=== PATIENT | female | born 1970 | race Caucasian/White ===

== ENCOUNTER → 2017-01-01 | Outpatient (CLI) | payer OTHER | END | disposition home or self-care (01) | LOC: C.PAPS 13:51 | PROVIDERS: ATTEND Obstetrics & Gynecology | DX: Z12.4 Encounter for screening for malignant neoplasm of cervix (principal) ==

== ENCOUNTER 2020-04-04 09:38 | Observation (INO) ==
--- NOTE | 2020-03-31 09:00 | Anesthesiology Consultation ---
Date of Service March 31, 2020 Assessment & Plan (1) Encounter for pre-operative examination: Chart Review Chart Review: Acceptable Risk for Surgery (pending preop Covid testing results from 03/30) and Patient NOT seen in Pre Admission Testing - Check test AM DOS. Will leave to anesthesia discretion if EKG needed DOS. Per nursing assessment 03/25/20, pt resides in [facility]. Travels to [facility]. 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 No known Covid positive contacts or Covid related symptoms for patient personally. Pt does work in [facility] [employer]- gets tested weekly- has always tested negative. Pt denies any patients/employees with Covid at facility and never had in the past. Pt scheduled for preop Covid testing 03/30/20= results pending. Patient will be working from time of test until surgery but wears PPE as required. Pt may proceed as scheduled pending Covid results are negative. Will leave to anesthesia discretion if rapid Covid test needed DOS. History Surgery Operation Date: 04/04/20 09:50 Proposed Procedures p Robotic Total Laparoscopic Hysterectomy - Betty Lara MD, FACOG Height/Weight Height: 5 ft 7.5 in Weight: 91.172 kg Allergies Allergy/AdvReac Type Severity Reaction Status Date / Time codeine Allergy Unknown HEART RACES Verified 03/25/20 11:49 latex Allergy Unknown RASH Verified 03/25/20 11:49 Medications Home Medications Medication Instructions Recorded Confirmed Last Taken meloxicam 15 mg tablet 15 mg PO PM 03/08/20 03/25/20 Unknown acetaminophen [Acetaminophen Extra 500 mg PO BID 03/25/20 03/25/20 Unknown Strength] calcium carbonate [Calcium Antacid] 650 mg PO TID 03/25/20 03/25/20 Unknown triamcinolone acetonide 1 applic TOPICAL DAILY PRN 03/25/20 03/25/20 Unknown Past Medical History Medical History Deviated septum GERD (gastroesophageal reflux disease) Palpitations OCCASIONAL WHEN LAYING DOWN ON RIGHT SIDE Past Family History Family History Mother Coronary heart disease Lung cancer Sister Cervical cancer Past Surgical History Surgical History H/O abdominoplasty H/O tubal ligation Hx of cataract surgery BILAT Hx of cryosurgery, cervix, complicating Hx of oral surgery WISDOM TEETH Previous section S/P endometrial ablation Social History Smoking Status: Never smoker Do You Dip or Chew Tobacco: No Hx Alcohol Use: No Hx Substance Use: No substance use type: does not use Testing Laboratory Results Laboratory Tests 03/30/20 03/30/20 11:04 11:04 WBC 8.86 Hgb 14.6 Hct 42.4 Plt Count 236 Sodium 139 Potassium 3.7 Chloride 104 Carbon Dioxide 28 BUN 15 Creatinine 0.85 Glucose 100 H
[~2020-04-04 09:38] MED LIST: LACTATED RINGER'S 1,000 ML IV SCH; LR 15ML/HR IV SCH
[2020-04-04] MEDS ORDERED: DEXAMETHASONE SOD INJ 4 MG/ML VIAL ONE (11:18)
[2020-04-04] MEDS ORDERED: ONDANSETRON INJ 2 MG/ML 2 ML VIAL ONE (11:18)
[2020-04-04] MEDS ORDERED: fentaNYL citrate 100 MCG/2 ML VIAL ONE ×2 (11:18→11:19)
[2020-04-04] MEDS ORDERED: NEOSTIGMINE METHYLSULFATE 5 MG/5 ML SYR ONE (11:18)
[2020-04-04] MEDS ORDERED: ROCURONIUM BROMIDE 10 MG/ML 5 ML VIAL IV ONE (11:18)
[2020-04-04] MEDS ORDERED: LIDOCAINE HCL 2% 2 ML VIAL/AMP(20MG/ML) INFIL ONE (11:18)
[2020-04-04] MEDS ORDERED: PROPOFOL IV EMULSION 10 MG/ML 20 ML VIAL IV ONE (11:18)
[2020-04-04] MEDS ORDERED: GLYCOPYRROLATE 0.2 MG/ML VIAL ONE (11:18)
[2020-04-04] MEDS ORDERED: MIDAZOLAM HCL 1 MG/ML 2ML VIAL ONE (11:19)
[2020-04-04] MEDS ORDERED: fentaNYL citrate 100 MCG/2 ML VIAL IV PRN (11:36)
[2020-04-04] MEDS ORDERED: ATROPINE SULFATE 0.1 MG/ML 10ML SYR IV PRN (11:36)
[2020-04-04] MEDS ORDERED: ePHEDrine sulfate 50 MG/ML AMP IV PRN (11:36)
[2020-04-04] MEDS ORDERED: HYDROmorphone INJ 2 MG/ML SYR/VIAL IV PRN (11:36)
[2020-04-04] MEDS ORDERED: ONDANSETRON INJ 2 MG/ML 2 ML VIAL IV PRN ×2 (11:36→16:07)
[2020-04-04] MEDS ORDERED: SCOPOLAMINE 1.5 MG TDSY TD ONE ×2 (11:36→11:44)
--- NOTE | 2020-04-04 11:42 | History & Physical Bridge Note ---
Date of Service April 04, 2020 History & Physical Bridge Note I have examined the patient, reviewed the History & Physical and in the interval since the performance of the History & Physical I have noted the following changes of clinical significance: no changes noted
[2020-04-04] MEDS ORDERED: BUPIVACAINE 0.5 % 5 MG/1 ML MPF 30ML VIAL ONE (11:48)
[2020-04-04] MEDS: CEFAZOLIN 2000MG 2,000 MG/15 ML SYR IV SCH ×2 (12:22→12:45)
[2020-04-04] MEDS ORDERED: TISSEEL FIBRIN SEALANT 4ML TOP ONE (13:15)
[2020-04-04] MEDS ORDERED: HYDROmorphone INJ 2 MG/ML SYR/VIAL ONE (14:14)
--- NOTE | 2020-04-04 14:34 | Operative Report ---
PG Post Operative Report Pre & Post Diagnosis Operation Date: 04/04/20 11:20 Pre-Op Diagnosis: Pelvic Pain Post-Op Diagnosis: Pelvic Pain I identified the patient and participated in the time-out.: Yes Procedure Operation Date: 04/04/20 11:20 Actual Procedures p Robotic Total Laparoscopic Hysterectomy, Bilateral Salpingectomy, Cystoscopy - Betty Lara MD, FACOG Surgeon Betty Lara MD, FACOG Senior Analyst . Estimated Blood Loss 20 Findings Consistent with Post-Op Diagnosis Specimens Uterus fallopian tubes cervix Description of Procedure Patient was given a general anesthetic, prepped and draped in dorsal lithotomy position in yellow fin van stirrups. Care was taken to position the legs and arms properly with no excess pressure on any area. Pre-operative antibiotics were given and SCDs applied earlier. Joshua catheter was inserted into her bladder, V-Care manipluator was placed in the uterus and sutured in place. Gloves were changed and then a supra-umbilical incision was made with scalpel, using Kristen technique, we dissected through the subcutaneous fat, fascia, split the rectus muscles and then entered the peritoneal cavity.. Blunt tip Kristen Trochar then inserted and balloon inflated to stabilize the port. CO2 gas was then used to insufflate the peritoneal cavity. Findings. Moderate adhesions at the bladder flap but nothing remarkable uterus adnexa within normal limits Deep tendelenberg position was obtained. 2 robotic ports were then placed, one on the left, one on the right side under direct visualization. 11mm bladeless accessory port placed in left upper quadrant under direct visualization. Robot docked. Arm #1 Monopolar zion, arm #2 Bipolar [place] grasper. Fallopian tubes were identified and removed with the monoplar zion and removed thru the accessory port. Ureter was identified on each side and followed a normal course. Distal to the left ovary, the blood supply was coagulated with the bipolar [place] and then cut with Zion. We were well away from the ureter. Round ligament was coagulated and then cut. Uterine vessels were then skeletonized, bladder flap was sharply dissected away with zion. Uterine vessels were then coagulated close to the cervix staying away from the left ureter. Vessels then cut. The exact same process was repeated on the right side taking note of the location of the right ureter at all times. Colpotomy was then performed with the monopolar zion, once completed, the specimen was removed through the vagina. A sponge in a glove was then placed in the vagina to maintain pneumoperitoneum. Instrument exchange then occurred. Arm #1 became the STEPH needle delivery driver/customer service, Arm # 2 became the Cobra Grasper. 12 inch 2-0 V-Lock 90 day suture was placed through the accessory port. Cuff was closed from left to right, then back taking at least 1cm full thickness bites of vaginal mucosa. Suture was cut so there was no tail, needle removed through the accessory port. Sponge removed from the vagina and seal air tight. Generous irrigation and suction, hemostasis excellent, Tisseal applied to pedicles. Cystoscopy performed and no injury to the bladder, no sutures noted, good strong jets of blue colored dye were noted from both right and left ureter openings. Cystoscope removed and a new josuha catheter placed. Robot undocked, instruments, ports removed. gas allowed to escape. Incisions injected with Marcaine, fascia closed in the umbilical and a deep stitch into the accessory port with 0-Vicryl. 4-0 subcuticular skin closures on all incisions, dermabond apllied. Sponge and instrument counts correct. I attest to the content of the Intraoperative Record and any orders documented therein. Any exceptions are noted below.
--- NOTE | 2020-04-04 15:47 | Anesthesiology Progress Note ---
Date of Service April 04, 2020 Anesthesia Post Procedure Vital Signs Vital Signs: Temp Pulse Pulse Resp BP Pulse Ox 04/04/20 15:40 36.4 C L 66 14 130/69 95 04/04/20 15:30 36.4 C L 68 15 124/69 95 04/04/20 15:20 76 15 121/73 95 04/04/20 15:10 79 16 137/68 100 04/04/20 15:00 80 16 128/75 100 04/04/20 14:50 36.1 C L 90 13 131/79 98 04/04/20 10:23 36.7 C 69 20 142/87 H 99 Pain Intensity Abdomen: Pain Intensity: 2 Transfer of Care Handoff Completed per policy Notes Mental Status: alert / awake / arousable and participated in evaluation Patient Amnestic to Procedure: Yes Nausea / Vomiting: adequately controlled Pain: adequately controlled Airway Patency, RR, SpO2: stable & adequate BP & HR: stable & adequate Hydration State: stable & adequate Anesthetic Complications: no major complications apparent and Pt Satisfied with anesthetic care
[2020-04-04] MEDS ORDERED: CHECK SCOPOLAMINE PATCH PLACEMENT SCH (16:00)
[2020-04-04] MEDS ORDERED: bisacodyL 10 MG SUPP PR PRN (16:07)
[2020-04-04] MEDS ORDERED: OXYCODONE/ACETAMINOPHEN 5mg/325mg TAB PO PRN ×2 (16:07)
[2020-04-04] MEDS ORDERED: IBUPROFEN 600 MG TAB PO PRN (16:07)
[2020-04-04] MEDS ORDERED: MAGNESIUM HYDROXIDE SUSP 30 ML UDC PO PRN (16:07)
[2020-04-04] MEDS ORDERED: KETOROLAC 30 MG/ML VIAL IV PRN (16:07)
[2020-04-04] MEDS ORDERED: MEPERIDINE HCL 50 MG/ML CARP IV PRN (16:07)
[2020-04-04] MEDS ORDERED: PROMETHAZINE HCL 25 MG in SODIUM CHLORIDE 0.9% 50 ML IV PRN (16:07)
[2020-04-04] MEDS ORDERED: LACTATED RINGER'S 1,000 ML IV SCH (16:07)
[2020-04-04] MEDS ORDERED: SIMETHICONE 80 MG CHEW PO PRN (16:07)
[2020-04-04] MEDS ORDERED: PROMETHAZINE HCL 12.5 MG in SODIUM CHLORIDE 0.9% 50 ML IV PRN (16:07)
[2020-04-04] MEDS ORDERED: ZOLPIDEM TARTRATE 5 MG TAB PO PRN (16:07)
[2020-04-04] MEDS ORDERED: DOCUSATE SODIUM 100 MG CAP PO SCH (21:00)
--- NOTE | 2020-04-05 13:51 | Discharge Summary ---
Date of Service April 05, 2020 Discharge Data Procedures Performed Operation Date: 04/04/20 11:20 Actual Procedures p Robotic Total Laparoscopic Hysterectomy, Bilateral Salpingectomy, - Betty Lara MD, MING s Cystoscopy - Betty Lara MD, SHEILAOG Hospital Course (1) Pelvic pain: Patient had a laparoscopic hysterectomy recovered quickly and was sent home a few hours after surgery at that time she was ambulating well tolerating an oral diet minimal bleeding and pain was well-controlled discharge instructions were reviewed patient talkpatient had a laparoscopic hysterectomy recovered quickly and was sent home a few hours after surgery at that time she was ambulating well tolerating an oral diet minimal bleeding and pain was well- controlled discharge instructions were reviewed patient talk to contact the office with any concerns to contact the office with any concerns Coding Level of Care Code None Diagnoses Pelvic pain R10.2
== END 2020-04-04 21:40 | disposition home or self-care (01) ==
LOC: 4N 09:38 → ASU 09:38